=== PATIENT | male | born 1970 | race Caucasian/White ===

== ENCOUNTER 2016-11-09 09:59 | Emergency (ER) | payer BC ==
[~2016-11-09] VITALS: Ht 177.8 cm; Wt 81.8 kg
[2016-11-09] MEDS ORDERED: NEXI20CA PO (10:08)
[2016-11-09] MEDS ORDERED: PERCOCET 5MG/325MG TAB PO ONE (10:45)
[2016-11-09] MEDS ORDERED: ADACEL/BOOSTRIX VACCINE (DIPHTH/PERTUSS/ACELL/TETANUS)0.5ML SYR (90715) IM ONE (10:45)
[2016-11-09] MEDS ORDERED: LIDOCAINE 2% MDV 20 ML VIAL SC ONE (11:15)
--- NOTE | 2016-11-09 11:16 | REP ---
LEFT FIFTH DIGIT: Four views of the left 5th digit are performed. There is soft tissue disruption at the tip of the digit. There is a comminuted fracture of the tuft of the distal phalanx with mild distraction of the fracture fragments. No other acute fracture or dislocation is seen. Signed by Lior Gonzalez MD 11/09/2016 04:40 P
[2016-11-09] MEDS ORDERED: CEPHALEXIN 500 MG CAP PO ONE (11:30)
[2016-11-09] MEDS ORDERED: KEFL500C17 PO (12:38)
[2016-11-09] MEDS ORDERED: PERC5TAB12 PO (12:38)
[2016-11-09 12:48] VITALS: BP 142/95
== END 2016-11-09 12:53 | disposition home or self-care (01) ==
LOC: M ED 09:59
DX: S61.317A Laceration without foreign body of left little finger with damage to nail, initial encounter (principal); S62.646B Nondisplaced fracture of proximal phalanx of right little finger, initial encounter for open fracture; W31.81XA Contact with recreational machinery, initial encounter; Y92.89 Other specified places as the place of occurrence of the external cause; Y93.89 Activity, other specified; Y99.9 Unspecified external cause status

== ENCOUNTER 2016-11-26 06:03 | Inpatient (IN) | payer BC ==
[~2016-11-26] VITALS: Ht 177.8 cm; Wt 79.5 kg
[~2016-11-26 06:03] MED LIST: KEFL500C17 PO; NEXI20CA PO; PERC5TAB12 PO
[2016-11-26 06:56] LABS: MEAN CORPUSCULAR HEMOGLOBIN 33.8 pg (27.0-33.0); MEAN CORPUSCULAR HGB CONC 35.9 g/dl (32.0-36.5); MEAN CORPUSCULAR VOLUME 94.2 fl (80.0-96.0); RED CELL DISTRIBUTION WIDTH 11.9 % (11.5-14.5); WHITE BLOOD COUNT 9.7 K/mm3 (4.0-10.0)
[2016-11-26 07:18] LABS: METHADONE URINE NEGATIVE (NEGATIVE)
[2016-11-26 07:29] LABS: ALBUMIN 4.1 GM/DL (3.2-5.2); ALBUMIN/GLOBULIN RATIO 1.08 (1.00-1.93); ALKALINE PHOSPHATASE 66 U/L (45-117); ALT/SGPT 34 U/L (12-78); ANION GAP 9 MEQ/L (8-16); AST/SGOT 24 U/L (15-37); BILIRUBIN,DIRECT 0.1 MG/DL (0.0-0.2); BILIRUBIN,TOTAL 0.3 MG/DL (0.2-1.0); BLOOD UREA NITROGEN 20 MG/DL (7-18); CALCIUM LEVEL 9.2 MG/DL (8.5-10.1); CARBON DIOXIDE LEVEL 23 MEQ/L (21-32); CHLORIDE LEVEL 109 MEQ/L (98-107); CREATININE FOR GFR 1.12 MG/DL (0.70-1.30); GLOMERULAR FILTRATION RATE > 60.0 (>60); GLUCOSE, FASTING 117 MG/DL (70-105); SODIUM LEVEL 141 MEQ/L (136-145); TOTAL PROTEIN 7.9 GM/DL (6.4-8.2)
[2016-11-26] MEDS: NICOTINE 21MG/24HR 1 EA TRANSDERMAL TD SCH (09:00)
[2016-11-26] MEDS ORDERED: OLANZapine 5 MG TAB PO PRN (10:00)
[2016-11-26] MEDS ORDERED: ACETAMINOPHEN TAB 650MG DOSE (2X325MG) PO PRN (10:00)
[2016-11-26] MEDS ORDERED: traZODone 50 MG TAB PO PRN (10:00)
[2016-11-26] MEDS ORDERED: MOM 30ML SUSPENSION UDC PO PRN (10:00)
[2016-11-26] MEDS ORDERED: MAALOX 30 ML SUSP *UDC PO PRN (10:00)
[2016-11-26 11:12] VITALS: BP 135/93
[2016-11-26] MEDS ORDERED: hydrOXYzine 25 MG TAB PO PRN (12:45)
--- NOTE | 2016-11-26 13:48 | MHHPEPDOC ---
[facility] History & Physical History and Physical DATE OF ADMISSION: Nov 26, 2016 at 10:00 LEGAL STATUS AT ADMISSION: 9.39 CHIEF COMPLAINT: "It was all a misunderstanding". HISTORY OF THE PRESENT ILLNESS: Patient is a 46-year-old male, who police brought in [place] following an argument with GF of 9 months. 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 He had to shoot the critter. He was bringing the gun into his camper to lock it on the gun rack he keeps inside when he made the statement to his GF "would you be happier if I shot myself". She took off for a walk and encountered a police booking officer to arrived at the camper and classified the event as a "stand off". Pt disputes this. He also disputes that it took 2 hours to end the drama. He and GF state he was cooperative with everything the police requested, he followed all [id number] and never used the gun in a threatening manner. No prior psychiatric admissions or treatment. PSYCHIATRIC REVIEW OF SYSTEMS: Affective: anxious Anxiety: mild Trauma: denies Psychosis: denies Personally: cooperative PAST PSYCHIATRIC HISTORY: Prior Psychiatric Disorder: denies, none Outpatient Treatment: none Suicidal/Self injurious: denies Psychotropic Medication History: none ALLERGIES: Please see below. FAMILY PSYCHIATRIC HISTORY: denies NV, SA and suicide in family members. 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 Pt admits to use of beer but not to intoxication and regular use of cannabis. PAST MEDICAL/SURGICAL HISTORY: 1. Nexium for GERD 2. Metal splint to little finger of left hand injured at work VITAL SIGNS: Temperature , pulse respiratory rate , blood pressure pulse oximetry % on room air. MENTAL STATUS EXAMINATION: General appearance: Patient is a 46-year old male, who is thin, long hair, alves, intense eye contact, wearing hospital garb. Speech: speech impairment since , not corrected with therapy, states he has been told he gets one word ahead of himself. Thought processes: linear Thought content: appropriate, fixated on leaving due to his jobs Abstract reasoning and computation: good Description of associations: fair Description of abnormal or psychotic thoughts: denies perceptual disturbance, denies SI and HI. Judgment: limited Insight: good Orientation: well oriented. Recent and remote memory: good. Attention span and concentration: good. Fund of knowledge:Full. Mood: "I just don't want to lose my job". Affect: anxious DIAGNOSES: 1. adjustment disorder with depressed mood ASSESSMENT: Pt admits it was stupid for him to make a suicidal statement. Now he just wants to be discharged as he fears he will lose his job. Instructed pt he will not be discharged until we have obtained collateral information and hold a meeting with his GF on Tuesday. He understood this and requested assistance with getting a number off his phone to let his employers know his situation. RN was happy to assist. Pt denies feeling anxious. Explained he received therapy for a speech impediment but it cannot be corrected. "I get a word ahead of myself". He sounds and looks anxious but denies feeling so. He denies changes in appetite, sleep disturbance, anhedonia, psychomotor retardation, no agitation. He denies poor concentration or distraction. He denies worry and or panic. He denies trauma. He denies voices or visions. He denies any h/o self-harm. He denies any intent to use the handgun on himself or anyone else. "It was a stupid thing to do and I shouldn't have said it". He is willing to sign RAFAEL so we can obtain collateral info from Jessy HARRIS. Pt signed RAFAEL for Police. DAKSHA contacted them. According to police Walker belleded himself in the vehicle with a loaded shot gun for several hours, making numerous suicidal threats. Even after he got out of the vehicle he continued with SI while the handcuffs were applied. Apparently the argument between he and the GF had to do with her leaving him. When DAKSHA contacted her the impression she got from the carlos of Jessy's voice was that she was under the influence of some type of substance. She stated she did not recall anything about a gun and was basically unhelpful in providing collateral information. PROBLEM LIST: 1. poor impulse control 2. anxiety. 3. risk for self-injury INITIAL TREATMENT PLAN: 1. Patient was admitted on a 9.39 2. Complete history was obtained. 3. With patients permission, family will be contacted and database will be expanded. 4. Patients medication regimen will be reviewed and changed accordingly. 5. Patient will be provided with protected environment. 6. Patient will be treated with individual, group, and milieu therapies. 7. Patient will receive supportive psych-education. 8. Discharge planning will commence immediately. 9. Outpatient follow-up treatment will be strongly recommended. 10. The initial treatment plan will focus initially on: * Depression. * Risk for suicide. * Substance abuse. ESTIMATED LENGTH OF STAY: 4DAYS. anticipate discharge Tuesday-- will attempt contact with GF again on Tuesday and if she is more coherent will ask her to come in for meeting before Walker is discharged. TIME SPENT COUNSELING AND COORDINATING INITIAL CARE: 50 minutes. Laboratory Data [facility] Labs Laboratory Tests 2 11/26/16 06:41: Anion Gap 9, Glomerular Filtration Rate > 60.0, Calcium Level 9.2, Aspartate Amino Transf (AST/SGOT) 24, Alanine Aminotransferase (ALT/SGPT) 34, Alkaline Phosphatase 66, Total Bilirubin 0.3, Direct Bilirubin 0.1, Total Protein 7.9, Albumin 4.1, Albumin/Globulin Ratio 1.08, Thyroid Stimulating Hormone (TSH) 1.100, Salicylates Level 6.3, Urine Amphetamines Screen NEGATIVE, Urine Benzodiazepines Screen NEGATIVE, Urine Opiates Screen NEGATIVE, Urine Methadone Screen NEGATIVE, Acetaminophen Level < 2.0L, Urine Barbiturates Screen NEGATIVE , Urine Phencyclidine Screen NEGATIVE, Urine Cocaine Metabolite Screen NEGATIVE , Urine Cannabinoids Screen POSITIVEH, Ethyl Alcohol Level 0.003 CBC/BMP Laboratory Tests 11/26/16 06:41 Red Blood Count 4.93, Mean Corpuscular Volume 94.2, Mean Corpuscular Hemoglobin 33.8 H, Mean Corpuscular Hemoglobin Concent 35.9, Red Cell Distribution Width 11.9 Medications Scheduled PRN Esomeprazole Magnesium Trihydr (Nexium) 20 Mg Cap, 20 MG PO DAILY PRN for HEARTBURN, (Reported) Allergies Coded Allergies: No Known Allergies (Unverified , 11/09/16) Kaila Mcbride Nov 26, 2016 13:48
[2016-11-26 18:00] VITALS: BP 134/86
[2016-11-27 06:37] VITALS: BP 124/71
[2016-11-27] MEDS: OMEPRAZOLE 20 MG CAP PO SCH (09:00)
[2016-11-27] MEDS: NICOTINE 21MG/24HR 1 EA TRANSDERMAL TD SCH (09:00)
[2016-11-27] MEDS: NICOTINE POLACRILEX 2 MG GUM PO PRN ×2 (15:24→20:44)
[2016-11-27 18:04] VITALS: BP 150/90
--- NOTE | 2016-11-27 21:42 | IPN ---
DATE: 11/27/2016 SUBJECTIVE: The patient today states, "I'm feeling better." He has no complaints. He says he is not feeling depressed. He says he slept well. He is denying suicidal thoughts. MENTAL STATUS EXAMINATION: This patient is alert and oriented times three. Eye contact is fairly good. Psychomotor activity is normal. There is no formal thought disorder. His mood is fine. His affect is restricted but appropriate to his mood. He is psychotic, suicidal, or homicidal. Concentration is fair. Memory is intact. Insight and judgment are poor. DIAGNOSIS: Adjustment disorder with depressed mood. TREATMENT PLAN: We will continue to monitor the patient for continued elevation and stabilization of his mood and for continued resolution of any suicidal ideation.
[2016-11-28 06:39] VITALS: BP 134/78
[2016-11-28] MEDS: OMEPRAZOLE 20 MG CAP PO SCH (08:40)
[2016-11-28] MEDS: NICOTINE POLACRILEX 2 MG GUM PO PRN ×6 (08:40→22:37)
--- NOTE | 2016-11-28 17:43 | MHIPN ---
DATE: 11/28/2016 The patient states "I'm doing pretty good." He says he slept good. He is denying being suicidal. MENTAL STATUS EXAMINATION: Patient is alert and oriented times three. Eye contact is fairly good. Psychomotor activity is normal. He is verbally spontaneous. He has no formal thought disorder noted. Mood is "better." Affect full range and appropriate. He is not psychotic, suicidal or homicidal. Concentration fair. Insight and judgment fair. DIAGNOSIS: Adjustment disorder with depressed mood. TREATMENT PLAN: At this point, the patent will need further mental check for continued resolution of any suicidal ideations and for continued elevation and stabilization of his mood.
[2016-11-28 18:07] VITALS: BP 142/84
--- NOTE | 2016-11-28 22:40 | HPE ---
DATE OF ADMISSION: 11/26/2016 HISTORY OF PRESENT ILLNESS: Please refer to psychiatric history and evaluation for further details on this admission. This examination and history is intended for medical issues, which may need treatment, followup or consult on this 46-year-old male. ALLERGIES: No known allergies. PRIMARY CARE PROVIDER: He goes to the [facility] [place], [place]. SOCIAL HISTORY: He is single. Ethyl alcohol (EtOH) 1-2 beers a night. Smokes two packs of cigarettes per day. States he is currently using the nicotine gum and is not craving. He may continue that when he gets out instead of smoking. Recreational drug use marijuana. PAST MEDICAL HISTORY: Gastroesophageal reflux disease (GERD). PAST SURGICAL HISTORY: Negative. FAMILY HISTORY: Noncontributory. LABORATORY DATA: WBC 9.7, hemoglobin 16.7, hematocrit 46.4, platelets 202. Sodium 141, potassium 4.0, chloride 109, CO2 23, BUN 20, creatinine 1.1. Urine was positive for cannabinoids. REVIEW OF SYSTEMS: 10-systems review was done. He has a fracture of the left fifth digit, which was repaired and sutured by [facility] on 11/09. He has since had the sutures removed. It is healing well. He has a finger protector on and has a followup visit with [facility] on 12/02/2016. Otherwise, review of systems is unremarkable. OBJECTIVE: A 46-year-old cooperative male in no acute distress. VITAL SIGNS: Height 70 inches, weight 79.54, body mass index (BMI) 25.2, blood pressure 134/78, pulse 85, respirations 20, temperature 97.2. GENERAL: The patient is alert and oriented times three. HEENT: Pupils equal and react to light. Extraocular movement intact. Sclerae clear. Conjunctivae normal. No facial asymmetry. Pharynx, tongue, gums pink and moist. Tongue is midline. NECK: Supple without lymphadenopathy. No thyromegaly. No goiter. Carotids 2+ without bruits. CHEST: Clear to auscultation without wheeze or retraction. HEART: Regular. ABDOMEN: Benign. Bowel sounds are positive. GENITOURINARY/RECTAL: Not done. EXTREMITIES: Equal strength, full range of motion. No cyanosis, clubbing or edema. Left hand fifth digit has a finger protector on. Peripheral pulses equal and palpable bilaterally. SKIN: Warm and dry. GAIT: Steady. IMPRESSION: Psychiatric plan per psychiatry. Followup for the left digit as already scheduled with [facility] on 12/02/2016. MTDD
[2016-11-29 06:46] VITALS: BP 143/71
[2016-11-29] MEDS: NICOTINE POLACRILEX 2 MG GUM PO PRN ×2 (07:50→10:00)
[2016-11-29] MEDS: OMEPRAZOLE 20 MG CAP PO SCH (07:58)
--- NOTE | 2016-11-29 16:50 | MHDSPDOC ---
[facility] Discharge Summary Discharge Summary DATE OF ADMISSION: Nov 26, 2016 at 10:00 DATE OF DISCHARGE: Nov 29, 2016 at 10:15 DISCHARGE DIAGNOSES: 1. adjustment disorder with depressed mood. 2. REASON FOR ADMISSION:pt locked himself in his truck with a shotgun. he says he made one suicidal statement but the police said he made numerous statements. Police called it a "stand off" for 2 hours before pt got out of truck and surrendered his gun. pt claims most of this is untrue. Pt had an argument with his girlfriend. they were both taking a time out when she was walking and the police initiated a conversation with her. CONSULTANTS INVOLVED: nursing, lab, psychiatry medicine. TREATMENT AND PROGRESS ON THE UNIT : pt felt his admission was misunderstanding and tried very hard to get released right after arriving on the unit. He was fixated on getting fired if he were not at work the following day. problem solving with him was of no avail. he declined any psychiatric needs and symptoms and eventually was resolved that he would not be released until we had more information. The police contradicted much of what Walker reported to chart writer. For instance, Walker said the gun was unloaded and police say it was loaded. the truth will never be known by chart writer as it was not witnessed. GF was contacted and she was no help at all in getting to the bottom of things. Pt denies any previous need for psychiatric care. he denies any h/o self-harm. no homicidal thoughts before or at the time of discharge. HOSPITAL COURSE: Walker remained on the unit until Tuesday at which time the e business project manager of the campground where Walker is staying was contacted. He stated he had no concerns for Walker's safety or the safety of his other residents if Walker returned there. He offered to come and get Walker which was arranged. Walker did not take any medication besides his Nexium and nicorette gum while here. He declined the need for an antidepressant, anxiety meds, sleep meds. He did not exhibit a formal thought disorder, clinical depression, ptsd, panic or anxiety disorder. He likely drinks more than was reported and he does use cannabis but he does not view this as a problem. He has never been in any legal problems. DISCHARGE ASSESSMENT: karolyn was discharged this morning with the hope he can return to his jobs and continue to support himself. pt was not suicidal when he left. regrets ever saying he would kill himself. MENTAL STATUS EXAMINATION ON DISCHARGE: MEDICATIONS ON DISCHARGE: none PLAN/FOLLOWUP ARRANGEMENTS: none The amount of time spent in the coordination of care for this patient was approximately 30 minutes. Vital Signs/I&Os Vital Signs Date Time Temp Pulse Resp B/P (MAP) Pulse Ox O2 Delivery O2 Flow Rate FiO2 11/29/16 06:46 97.8 91 18 143/71 (95) Room Air 11/26/16 10:50 98 Medications Scheduled PRN Esomeprazole Magnesium Trihydr (Nexium) 20 Mg Cap, 20 MG PO DAILY PRN for HEARTBURN, (Reported) Allergies Coded Allergies: No Known Allergies (Unverified , 11/09/16) Kaila Mcbride Nov 29, 2016 16:50
== END 2016-11-29 10:15 | disposition home or self-care (01) | DRG 754 ==
LOC: M ED 06:03 → M ED INP 10:00 → M PSY 11:03
PROVIDERS: ADMIT Psychiatry & Neurology Psychiatry; ATTEND Psychiatry & Neurology Psychiatry
DX: F43.21 Adjustment disorder with depressed mood (principal); F10.10 Alcohol abuse, uncomplicated; F17.210 Nicotine dependence, cigarettes, uncomplicated; K21.9 Gastro-esophageal reflux disease without esophagitis; S62.607D Fracture of unspecified phalanx of left little finger, subsequent encounter for fracture with routine healing; X58.XXXD Exposure to other specified factors, subsequent encounter; Y92.9 Unspecified place or not applicable; F12.90 Cannabis use, unspecified, uncomplicated

== ENCOUNTER 2018-04-03 10:07 | Day surgery (SDC) | payer BC ==
[~2018-04-03] VITALS: Ht 177.8 cm; Wt 83.9 kg
[~2018-04-03 10:07] MED LIST changes: +CIAL20TA; +NS 1,000 ML IV ONE
[2018-04-03] MEDS ORDERED: PROPOFOL 500 MG/50 ML VIAL As Ordered ONE (12:31)
[2018-04-03] MEDS ORDERED: fentaNYL 100 MCG/2 ML INJECTION (J3010) As Ordered ONE (12:31)
[2018-04-03] MEDS ORDERED: LIDOCAINE 2% INJ 100 MG/5 ML SDV (FOR ANES.) As Ordered ONE (12:31)
--- NOTE | 2018-04-03 12:44 | ROOR ---
Patient Name: Walker Dougherty Procedure Date: 04/03/2018 12:25 PM Date of : 1970 Age: 47 Room: [facility] Gender: Male Note Status: Finalized Procedure: Upper GI endoscopy Indications: Heartburn, Suspected esophageal reflux Providers: Santhosh GAVIN MD Referring MD: Sam Conde MD Requesting Provider: Medicines: Monitored Anesthesia Care Complications: No immediate complications. Procedure: Pre-Anesthesia Assessment: - The heart rate, respiratory rate, oxygen saturations, blood pressure, adequacy of pulmonary ventilation, and response to care were monitored throughout the procedure. The Endoscope was introduced through the mouth, and advanced to the second part of duodenum. The upper GI endoscopy was accomplished without difficulty. The patient tolerated the procedure well. Findings: The Z-line was variable and was found 38 cm from the incisors. This was biopsied with a cold forceps for histology. Non-severe esophagitis was found in the distal esophagus. Plaques were found in the lower third of the esophagus. Diffuse mild inflammation characterized by erythema was found in the gastric antrum. Biopsies were taken with a cold forceps for histology. The examined duodenum was normal. Impression: - Z-line variable, 38 cm from the incisors. Biopsied. - Non-severe reflux esophagitis. Rule out Page's esophagus. - A few small esophageal plaques were found, suspicious for candidiasis. - Mild gastritis. Biopsied. - Normal examined duodenum. Recommendation: - Telephone endoscopist for pathology results in 2 weeks. - Continue present medications. - Nystatin suspension 100,000 units PO QID for 2 weeks. - (the script was sent to your pharmacy on file) Santhosh Gavin MD Santhosh GAVIN MD 04/03/2018 12:44:31 PM This report has been signed electronically. Number of Addenda: 0 Note Initiated On: 04/03/2018 12:25 PM Estimated Blood Loss: Estimated blood loss: none.
--- NOTE | 2018-04-03 13:02 | ROOR ---
Patient Name: Walker Dougherty Procedure Date: 04/03/2018 12:27 PM Date of : 1970 Age: 47 Room: [facility] Gender: Male Note Status: Finalized Procedure: Colonoscopy Indications: Screening in patient at increased risk: Colorectal cancer in father before age 60 Providers: Santhosh GAVIN MD Referring MD: Sam Conde MD Requesting Provider: Medicines: Monitored Anesthesia Care Complications: No immediate complications. Procedure: Pre-Anesthesia Assessment: - The heart rate, respiratory rate, oxygen saturations, blood pressure, adequacy of pulmonary ventilation, and response to care were monitored throughout the procedure. The Colonoscope was introduced through the anus and advanced to the terminal ileum, with identification of the appendiceal orifice and IC valve. The colonoscopy was performed without difficulty. The patient tolerated the procedure well. The quality of the bowel preparation was good. Findings: The perianal and digital rectal examinations were normal. Four sessile polyps were found in the sigmoid colon and splenic flexure. The polyps were 4 to 5 mm in size. These polyps were removed with a cold snare. Resection and retrieval were complete. Internal hemorrhoids were found during retroflexion. The hemorrhoids were medium-sized. The exam was otherwise without abnormality on direct and retroflexion views. Impression: - Four 4 to 5 mm polyps in the sigmoid colon and at the splenic flexure, removed with a cold snare. Resected and retrieved. - Moderate Internal hemorrhoids. - The examination was otherwise normal on direct and retroflexion views. Recommendation: - Repeat colonoscopy in 3 years for surveillance. Santhosh Gavin MD Santhosh GAVIN MD 04/03/2018 1:02:18 PM This report has been signed electronically. Number of Addenda: 0 Note Initiated On: 04/03/2018 12:27 PM Estimated Blood Loss: Estimated blood loss: none.
[2018-04-03 13:18] VITALS: BP 128/89
== END 2018-04-03 13:27 | disposition home or self-care (01) ==
LOC: M OPP 10:07
PROVIDERS: ATTEND Internal Medicine Gastroenterology
DX: Z80.0 Family history of malignant neoplasm of digestive organs (principal); R12 Heartburn; K64.8 Other hemorrhoids; D12.3 Benign neoplasm of transverse colon; K63.5 Polyp of colon; K22.8 Other specified diseases of esophagus; K21.0 Gastro-esophageal reflux disease with esophagitis; K29.50 Unspecified chronic gastritis without bleeding; F17.200 Nicotine dependence, unspecified, uncomplicated; Z79.899 Other long term (current) drug therapy; Z88.8 Allergy status to other drugs, medicaments and biological substances
CPT/HCPCS: 43239; 45385; 88305; J3010

== ENCOUNTER → 2022-05-19 | Outpatient (CLI) | payer BC ==
[~2022-05-19] MED LIST changes: -CIAL20TA; +CIAL20TA PO; -NS 1,000 ML IV ONE
== END ==
LOC: M LABSMTC 08:23
PROVIDERS: ATTEND Anesthesiology
DX: Z01.812 Encounter for preprocedural laboratory examination (principal)

== ENCOUNTER 2022-05-24 08:44 | Day surgery (SDC) | payer BC ==
[~2022-05-24] VITALS: Ht 177.8 cm; Wt 83.8 kg
[~2022-05-24 08:44] MED LIST changes: +LIDOCAINE 2% 100MG/5ML SDV (FOR ANES.) As Ordered ONE; +NS 1,000 ML IV ONE; +propofoL 200 MG/20 ML VIAL As Ordered ONE
[2022-05-24 10:50] VITALS: BP 123/87
[2022-05-24] MEDS ORDERED: propofoL 200 MG/20 ML VIAL As Ordered ONE (11:04)
== END 2022-05-24 10:59 | disposition home or self-care (01) ==
LOC: M OPP 08:44
PROVIDERS: ATTEND Internal Medicine Gastroenterology
DX: Z12.11 Encounter for screening for malignant neoplasm of colon (principal); Z86.010 Personal history of colon polyps; Z80.0 Family history of malignant neoplasm of digestive organs; D12.2 Benign neoplasm of ascending colon; D12.5 Benign neoplasm of sigmoid colon; K57.30 Diverticulosis of large intestine without perforation or abscess without bleeding; K64.8 Other hemorrhoids; F17.210 Nicotine dependence, cigarettes, uncomplicated; K21.9 Gastro-esophageal reflux disease without esophagitis; N40.0 Benign prostatic hyperplasia without lower urinary tract symptoms; Z79.899 Other long term (current) drug therapy; Z88.8 Allergy status to other drugs, medicaments and biological substances; Z80.1 Family history of malignant neoplasm of trachea, bronchus and lung; Z70.3 Counseling related to combined concerns regarding sexual attitude, behavior and orientation; Z80.8 Family history of malignant neoplasm of other organs or systems

== ENCOUNTER → 2022-12-10 | Outpatient (REF) | payer BC ==
[~2022-12-10] MED LIST changes: -LIDOCAINE 2% 100MG/5ML SDV (FOR ANES.) As Ordered ONE; -NS 1,000 ML IV ONE; -propofoL 200 MG/20 ML VIAL As Ordered ONE
== END ==
LOC: M SFHCCLAY 08:57
PROVIDERS: ATTEND Physician Assistant
DX: Z53.9 Procedure and treatment not carried out, unspecified reason (principal)

== ENCOUNTER → 2023-10-20 | Outpatient (REF) | payer BC ==
[2023-10-20 13:00] LABS: CHOLESTEROL RISK RATIO 4.03 (<5); HDL CHOLESTEROL 45.4 MG/DL (>40); LDL CHOLESTEROL 119.6 MG/DL (<100); NON-HDL-C 137.6 MG/DL
[2023-10-20 13:02] LABS: CALCIUM LEVEL 9.5 MG/DL (8.5-10.1); CREATININE FOR GFR 1.34 MG/DL (0.70-1.30); GLOMERULAR FILTRATION RATE 59.6 (>56); POTASSIUM SERUM 4.2 MMOL/L (3.5-5.1)
== END ==
LOC: M SFHCCLAY 08:24
PROVIDERS: ATTEND Nurse Practitioner Family
DX: I10 Essential (primary) hypertension (principal)

== ENCOUNTER → 2024-02-23 | Outpatient (REF) | payer BC ==
[2024-02-23 17:08] LABS: BASO % 0.4 % (0.0-1.0); EOS # 0.2 10^3/uL (0.0-0.5); EOS % 2.9 % (0.0-3.0); HEMATOCRIT 49.4 % (42.0-52.0); HEMOGLOBIN 17.2 g/dl (13.5-17.5); LYMPH # 2.1 10^3/uL (1.5-5.0); LYMPH % 25.7 % (24.0-44.0); MEAN CORPUSCULAR HEMOGLOBIN 32.4 pg (27.0-33.0); MEAN CORPUSCULAR HGB CONC 34.8 g/dl (32.0-36.5); MONO # 0.6 10^3/uL (0.0-0.8); MONO % 7.8 % (2.0-8.0); NEUTROPHILS # 5.1 10^3/uL (1.5-8.5); PLATELET COUNT, AUTOMATED 223 10^3/uL (150-450); RED BLOOD COUNT 5.31 10^6/uL (4.30-6.10); WHITE BLOOD COUNT 8.1 10^3/uL (4.0-10.0)
[2024-02-23 17:19] LABS: ALKALINE PHOSPHATASE 60 U/L (40-129); ALT/SGPT 29 U/L (7.0-40); AST/SGOT 20 U/L (<34); BILIRUBIN,TOTAL 0.8 MG/DL (0.3-1.2); BLOOD UREA NITROGEN 22 MG/DL (9-23); CARBON DIOXIDE LEVEL 27 MMOL/L (20-31); CHLORIDE LEVEL 103 MMOL/L (98-107); CREATININE FOR GFR 1.16 MG/DL (0.70-1.30); GLOMERULAR FILTRATION RATE > 60.0 (>56); GLUCOSE, FASTING 96 MG/DL (60-100); POTASSIUM SERUM 3.8 MMOL/L (3.5-5.1); SODIUM LEVEL 139 MMOL/L (136-145); TOTAL PROTEIN 7.8 G/DL (5.7-8.2)
[2024-02-23 17:23] LABS: VITAMIN B12 LEVEL 816 PG/ML (211-911)
[2024-02-23 17:28] LABS: FOLATE > 24.00 NG/ML (>5.4)
== END ==
LOC: M SFHCCLAY 14:21
PROVIDERS: ATTEND Nurse Practitioner Family
DX: K13.70 Unspecified lesions of oral mucosa (principal)

== ENCOUNTER → 2024-12-20 | Outpatient (CLI) | payer BC | LOC: M CLY 11:57 | PROVIDERS: ATTEND Nurse Practitioner Family | DX: Z01.89 Encounter for other specified special examinations (principal) ==

== ENCOUNTER → 2025-01-10 | Outpatient (CLI) | payer BC ==
[~2025-01-10] MED LIST changes: +PROHANCE 279.3MG/ML 15ML VIAL ONE; +PROHANCE 279.3MG/ML 5ML VIAL ONE
== END ==
LOC: M PLAIMG 08:07
PROVIDERS: ATTEND Nurse Practitioner Family
DX: K13.79 Other lesions of oral mucosa (principal)
CPT/HCPCS: 70543; 70551; A9576